=== PATIENT | female | born 1980 | race Two or more races ===

== ENCOUNTER 2017-07-12 04:37 | Emergency (ER) | payer OTHER ==
[~2017-07-12] VITALS: Ht 157.5 cm; Wt 54.4 kg
[2017-07-12] MEDS ORDERED: CARDIZEM120 MG PO (04:40)
== END 2017-07-12 10:56 | disposition home or self-care (01) ==
LOC: ER 04:37
DX: R19.7 Diarrhea, unspecified (principal); R11.0 Nausea

== ENCOUNTER 2017-08-07 23:34 | Emergency (ER) | payer OTHER ==
[~2017-08-07] VITALS: Ht 160 cm; Wt 55.3 kg
[~2017-08-07 23:34] MED LIST: CARDIZEM120 MG PO
== END 2017-08-08 06:08 | disposition home or self-care (01) ==
LOC: ER 23:34
DX: R00.2 Palpitations (principal); F06.4 Anxiety disorder due to known physiological condition

== ENCOUNTER 2017-09-14 18:31 | Emergency (ER) | payer OTHER ==
[~2017-09-14] VITALS: Ht 160 cm; Wt 49.9 kg
[2017-09-15] MEDS ORDERED: CIPRO500 MG PO (03:53)
[2017-09-15] MEDS ORDERED: INTESTINEX680 M1 PO (03:53)
[2017-09-15] MEDS ORDERED: CARAFATE1 GM/10 ML PO (03:53)
[2017-09-15] MEDS ORDERED: ZANTAC300 MG PO (03:53)
== END 2017-09-15 03:50 | disposition home or self-care (01) ==
LOC: ER 18:31
DX: A04.9 Bacterial intestinal infection, unspecified (principal)

== ENCOUNTER 2021-03-16 12:01 | Emergency (ER) | payer OTHER ==
[~2021-03-16] VITALS: Ht 160 cm; Wt 45.4 kg
[~2021-03-16 12:01] MED LIST changes: +CARAFATE1 GM/10 ML PO; +CIPRO500 MG PO; +INTESTINEX680 M1 PO; +ZANTAC300 MG PO
[2021-03-16] MEDS ORDERED: PROBIOTIC1 EAC2 (12:26)
[2021-03-16] MEDS ORDERED: PEPCID AC20 MG PO (18:34)
[2021-03-16] MEDS ORDERED: CIPRO500 MG PO (18:34)
[2021-03-16] MEDS ORDERED: PROBIOTIC1 EACH PO (18:34)
[2021-03-16] MEDS ORDERED: FLAGYL500MG PO (18:34)
[2021-03-16] MEDS ORDERED: LEVSIN/SL0.125 MG SL (18:34)
== END 2021-03-16 19:50 | disposition home or self-care (01) ==
LOC: ER 12:01
DX: K52.89 Other specified noninfective gastroenteritis and colitis (principal); R10.32 Left lower quadrant pain; Z03.818 Encounter for observation for suspected exposure to other biological agents ruled out

== ENCOUNTER 2021-08-23 02:29 | Emergency (ER) | payer OTHER ==
[~2021-08-23] VITALS: Ht 157.5 cm; Wt 41.7 kg
[~2021-08-23 02:29] MED LIST changes: +FLAGYL500MG PO; +LEVSIN/SL0.125 MG SL; +PEPCID AC20 MG PO; +PROBIOTIC1 EAC2; +PROBIOTIC1 EACH PO
[2021-08-23] MEDS ORDERED: GASTRACE CAPSU1 EACH (02:46)
== END 2021-08-23 10:19 | disposition home or self-care (01) ==
LOC: ER 02:29
DX: R11.0 Nausea (principal); N23 Unspecified renal colic